=== PATIENT | male | born 1960 | race Caucasian/White ===

== ENCOUNTER → 2023-09-24 14:56 | Outpatient (REF) | payer MEDICARE, SELFPAY | LOC: HWRAD 14:56 | PROVIDERS: ATTENDING PHYSICIAN Internal Medicine Endocrinology, Diabetes & Metabolism; FAMILY PHYSICIAN Nurse Practitioner Family | DX: E04.2 Nontoxic multinodular goiter (principal) | CPT/HCPCS: 76536 ==

== ENCOUNTER → 2023-10-28 06:40 | Day surgery (SDC) | payer MEDICARE, SELFPAY | LOC: GI 06:40 | PROVIDERS: ATTENDING PHYSICIAN Internal Medicine; FAMILY PHYSICIAN Nurse Practitioner Family | DX: Z12.11 Encounter for screening for malignant neoplasm of colon (principal); Z83.719 Family history of colon polyps, unspecified; K64.8 Other hemorrhoids | CPT/HCPCS: G0105 ==

== ENCOUNTER → 2024-12-18 07:16 | Outpatient (REF) | payer MEDICARE, SELFPAY | LOC: HWRAD 07:16 | PROVIDERS: ATTENDING PHYSICIAN Internal Medicine Endocrinology, Diabetes & Metabolism; FAMILY PHYSICIAN Nurse Practitioner Family | DX: E04.2 Nontoxic multinodular goiter (principal) | CPT/HCPCS: 76536 ==

== ENCOUNTER → 2025-06-12 07:07 | Outpatient (REF) | payer MEDICARE, SELFPAY | LOC: RCS 07:07 | PROVIDERS: ATTENDING PHYSICIAN Nurse Practitioner Family | DX: R01.1 Cardiac murmur, unspecified (principal) | CPT/HCPCS: 93306 ==

== ENCOUNTER 2025-06-17 05:58 | Day surgery (SDC) | payer MEDICARE, SELFPAY ==
--- NOTE | 2025-05-31 13:14 | CM ---
Addendum entered by Karo Rose RN 06/01/25 14:46:
Demographics: confirmed
Living situation:
Support Person Post Operatively:
History of
VN: yes, not currently on service
SNF: No
Outpatient : Encouraged patient to call for outpatient appointment
Has patient purchased required equipment: yes
PCP: Deyanira Delcid
Pharmacy: [facility]
Post Operative Discharge Plan: Outpatient PT.
Original Note:
CM reviewed medical records. CM left message for orthopedic [facility].
CM will await call back from patient.
[2025-06-04 14:09] VITALS: BMI 39.1
[2025-06-04 14:37] LABS: Hematocrit 45.3 % (39.0-52.0); Hemoglobin 15.0 g/dL (13.0-18.0); Mean Corp Hgb Conc. 33.1 g/dL (33.0-37.0); Mean Corpuscular Volume 91.9 fL (80.0-94.0); Platelet Count 183 10^3/uL (130-400); Red Cell Dist. Width 12.7 % (11.5-14.5)
[2025-06-04 15:14] LABS: ALT (SGPT) 28 U/L (0-50); AST (SGOT) 34 U/L (17-59); Albumin 4.7 g/dl (3.5-5.0); Alkaline Phosphatase 54 U/L (38-126); Blood Urea Nitrogen 15 mg/dl (9-20); Calcium 9.5 mg/dl (8.4-10.2); Carbon Dioxide 28 mmol/L (22-30); Chloride 107 mmol/L (98-107); Estimated Creatinine Clearance 115 ml/min; Glucose 85 mg/dl (70-99); Potassium 4.4 mmol/L (3.5-5.1); Sodium 142 mmol/L (135-145); Total Protein 7.3 g/dl (6.3-8.2); eGFR > 60.00
[2025-06-05 08:54] LABS: Glycohemoglobin (HgbA1c) 5.6 % (4.0-5.6)
[2025-06-07 16:33] VITALS: BMI 39.1
[2025-06-17] VITALS (13 sets, daily range): BP systolic 104–135; BP diastolic 72–86; PULSE 67; O2SAT 97; BMI 39.1
[2025-06-17] MEDS: CELEBREX 200 MG PO (07:38)
[2025-06-17] MEDS: TYLENOL 650 MG PO ×4 (07:38→20:52)
[2025-06-17] MEDS: NORMOSOL-R/PLASMALYTE-A 1000 IV ×2 (07:49→13:03)
[2025-06-17] MEDS: ULTRAM 50 MG PO (11:19)
--- NOTE | 2025-06-17 12:04 | W.PN.UPDATE ---
Update Note
Progress Note Update
R knee OA s/p R TKA w/ Dr Mazariegos 06/17/2025
- s/p R FRANCA, 2018, by Dr Cornejo and L FRANCA, 2023, by Dr Jorgensen
- EARLY DISCHARGE
DVT prophylaxis - ASA, b/l venous foot pumps
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
- IV Ancef during admission
- Will continue prophylactic Cephalexin upon d/c
- Will advise probiotic w/ abx therapy
HTN - diet controlled - monitor BP
Moderately dilated aorta - to f/u w/ cardio outpatient per PCP recs
HLD
Sinus bradycardia, asymptomatic
Colon polyps
Hemorrhoids
Remote migraines
Thyroid nodules, stable on serial imaging
Brannon-Schlatter disease
Seborrheic dermatitis
Allergic rhinitis
Obesity, BMI 39.1
[2025-06-17] MEDS: ULTRAM 25 MG PO ×3 (13:03→20:56)
--- NOTE | 2025-06-17 14:25 | W.PN.UPDATE ---
Update Note
Progress Note Update
Patient seen and examined. VSS. Pulm: nonlabored. CV: regular. RLE: NVI distally. Able to fully extend. Calf soft. Postop xray as expected. ASA for DVT prophylaxis. Plan for discharge home tomorrow with outpatient PT on Saturday.
[2025-06-17] MEDS: ANCEF 5 IV ×2 (14:34→23:37)
[2025-06-17] MEDS: ASPIRIN 325 MG PO (17:03)
[2025-06-17] MEDS: NEURONTIN 300 MG PO (20:45)
[2025-06-17] MEDS: COLACE 100 MG PO (20:46)
[2025-06-17] MEDS: SENOKOT 17.2 MG PO (20:46)
[2025-06-17] MEDS: DECADRON 4 MG PO (20:47)
[2025-06-17] MEDS: FLORASTOR 250 MG PO (20:47)
[2025-06-17] MEDS: PEPCID 20 MG PO (20:48)
[2025-06-17] MEDS: FLOMAX 0.4 MG PO (20:48)
[2025-06-17] MEDS: BACTROBAN 2% OINTMENT 1 APPLIC NASAL (20:50)
[2025-06-17] MEDS: CRESTOR 5 MG PO (20:50)
[2025-06-17] MEDS: TYLENOL PO ×2 (23:37→23:42)
[2025-06-18 03:00] VITALS: BP 118/65
[2025-06-18 04:40] VITALS: BMI 38.9
[2025-06-18] MEDS: TYLENOL 650 MG PO ×2 (05:05→08:16)
[2025-06-18] MEDS: ULTRAM 50 MG PO (05:05)
--- NOTE | 2025-06-18 06:42 | W.PN.ORTHO ---
Today's Communication / Plan
-
Plan for discharge home after PT
Assessment
.
Distal Motor Intact: Yes
Dressing:
Clean, dry and intact.
Assessment:
Doing well s/p R TKR
Plan
.
Surgery / Date: R TKR 06/17/25 DB
DVT Prophylaxis: Aspirin
Activity:
Out of bed.
PT/OT
Discharge Plan: Home w/ Outpatient PT
Subjective
.
.:
Patient resting comfortably. Was OOB and in the pierce yesterday
Vital Signs and Labs
.
Vital Signs and Labs:
Lab Results
06/04/25 13:15
06/04/25 13:15
Temp Pulse Resp BP Pulse Ox
98.1 F 76 18 118/65 96
06/18/25 03:00 06/18/25 03:00 06/18/25 03:00 06/18/25 03:00 06/18/25 03:00
Non-invasive Hgb result: 12.6
Physical Exam
-
Pulm: nonlabored
CV: regular
RLE: Dressing CDI. calf soft. Able to SLR and fully extend
[2025-06-18 08:12] VITALS: BP 124/72
[2025-06-18] MEDS: ULTRAM 25 MG PO (08:15)
[2025-06-18] MEDS: BACTROBAN 2% OINTMENT 1 APPLIC NASAL (08:16)
[2025-06-18] MEDS: FLORASTOR 250 MG PO (08:16)
--- NOTE | 2025-06-18 08:16 | CM ---
Cm met with patient and in room. CM confirmed PT appointment for 06/21 at [facility]. IMM given.
PLAN: Home with outpatient PT.
[2025-06-18] MEDS: DECADRON 4 MG PO (08:17)
[2025-06-18] MEDS: ASPIRIN 325 MG PO (08:17)
[2025-06-18] MEDS: SENOKOT 17.2 MG PO (08:17)
[2025-06-18] MEDS: COLACE 100 MG PO (08:17)
[2025-06-18] MEDS: MOBIC 15 MG PO (08:17)
--- NOTE | 2025-06-18 09:02 | W.PN.ORTHO ---
Today's Communication / Plan
-
Await PT and OT recs.
D/c this morning if remaining clinically stable.
Assessment
.
Distal Motor Intact: Yes
Dressing:
Clean, dry and intact.
Assessment:
R knee OA s/p R TKA w/ Dr Mazariegos 06/17/2025
- s/p R FRANCA, 2018, by Dr Cornejo and L FRANCA, 2023, by Dr Jorgensen
- EARLY DISCHARGE
DVT prophylaxis - ASA, b/l venous foot pumps
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
- IV Ancef during admission
- Will continue prophylactic Cephalexin upon d/c
- Will advise probiotic w/ abx therapy
HTN - diet controlled - BPs overall stable
Moderately dilated aorta - to f/u w/ cardio outpatient per PCP recs
HLD
Sinus bradycardia, asymptomatic
Colon polyps
Hemorrhoids
Remote migraines
Thyroid nodules, stable on serial imaging
Excelsior-Schlatter disease
Seborrheic dermatitis
Allergic rhinitis
Obesity, BMI 39.1
Plan
.
Surgery / Date: R TKA w/ Dr Mazariegos 06/17/2025
DVT Prophylaxis: Aspirin
Activity:
Out of bed.
PT/OT
Discharge Plan: Home w/ Outpatient PT
Subjective
.
.:
Patient resting comfortably in his bed.
R knee pain overall well controlled w/ current pain meds.
Denies any new significant complaints.
Eager for early d/c today.
Vital Signs and Labs
.
Vital Signs and Labs:
Lab Results
06/04/25 13:15
06/04/25 13:15
Temp Pulse Resp BP Pulse Ox
98.5 F 93 16 124/72 94
06/18/25 08:12 06/18/25 08:12 06/18/25 08:12 06/18/25 08:12 06/18/25 08:12
Non-invasive Hgb result: 12.6
Physical Exam
-
HEENT: No pallor, cyanosis, or jaundice. Throat clear.
NECK: Supple. No JVD.
RESPIRATORY: Lungs clear to auscultation.
CVS: S1, S2 normal. RRR.�
ABDOMEN: Soft, non-tender. No distension.
EXTREMITIES: Expected post-surgical R knee edema. Strength equal, no calf pain with palpation/dorsiflexion. Calves soft
DIRECTOR OF CLINICAL EDUCATION: AOx3. No focal deficits. podiatric medicine doctor grossly intact
[2025-06-18 09:04] VITALS: BP 124/72; PULSE 93; O2SAT 93
--- NOTE | 2025-06-18 09:09 | W.DS.TRANS ---
DC Summary - [facility]
-
Discharge Instructions:
Sleep Apnea Risk High
Discharge Diagnosis/Procedures R knee OA s/p R TKA w/ Dr Mazariegos 06/17/2025
Diet Regular
Additional Diets Adequate hydration, minimize opioids, and wear
TEDs stockings to prevent low blood pressure/
dizziness.
Activity As tolerated,With Walker
Driving Restrictions Not until seen by your Dr
Bathing Restrictions OK to Shower
Other Services PT
Wound Care Dressing to be removed 1 week post-surgery.
Suresh to be removed at 2 week follow-up with
surgeon's office.
Instructions:
Stand-Alone Forms: Total Hip/Knee Replacement D/C
Changes to Home Medications: Yes
Discharge Medications:
DC Medications w/original date entered in [facility]
cetirizine 10 mg tablet 10 mg PO DAILY PRN ALLERGIES 12/26/18
multivitamin with folic acid 400 mcg tablet (Tab-A-Deidre) 1 tab PO DAILY Supplement 03/14/20
glucosamine 750 mg-chondroitin,msm 137.5 mg-D3 25 mcg-Boswellia tablet (Osteo-Joint Complex) 1 tab PO DAILY 06/01/25
Held on 06/18/25. Instructions: Resume on 06/24/25.
rosuvastatin 5 mg tablet 5 mg PO HS HLD 06/01/25
mupirocin 2 % topical ointment 1 applic intranasal BID #1 tube 06/04/25
dexamethasone 4 mg tablet 4 mg PO BID Anti-inflammatory #7 tabs 06/07/25
famotidine 20 mg tablet 20 mg PO HS #30 tabs 06/07/25
gabapentin 300 mg capsule 300 mg PO HS neuropathic pain/sleep #10 caps 06/07/25
meloxicam 15 mg tablet 15 mg PO DAILY #14 tabs 06/07/25
ondansetron HCl 4 mg tablet 4 mg PO Q6H PRN nausea and vomiting #30 tabs 06/07/25
tramadol 50 mg tablet 50 - 100 mg (1 - 2 x 50 mg) PO Q6H PRN moderate-severe pain #30 tabs 06/07/25
acetaminophen 500 mg tablet (Tylenol Extra Strength) 1,000 mg (2 x 500 mg) PO Q6H #60 tabs 06/18/25
aspirin 325 mg tablet 325 mg PO DAILY #30 tabs 06/18/25
cephalexin 500 mg tablet 500 mg PO HS R HIP INFECTION #1 tab 06/18/25
docusate sodium 100 mg capsule 100 mg PO BID #30 caps 06/18/25
magnesium hydroxide 400 mg/5 mL oral suspension (Milk of Magnesia) 30 ml PO HS PRN constipation #3,780 mL 06/18/25
sennosides 8.6 mg tablet (Leela-kevin) 17.2 mg (2 x 8.6 mg) PO BID #30 tabs 06/18/25
Home Medication Changes
dexamethasone 4 mg tablet 4 mg PO BID Anti-inflammatory #7 tabs 06/07/25
famotidine 20 mg tablet 20 mg PO HS #30 tabs 06/07/25
gabapentin 300 mg capsule 300 mg PO HS neuropathic pain/sleep #10 caps 06/07/25
meloxicam 15 mg tablet 15 mg PO DAILY #14 tabs 06/07/25
ondansetron HCl 4 mg tablet 4 mg PO Q6H PRN nausea and vomiting #30 tabs 06/07/25
tramadol 50 mg tablet 50 - 100 mg (1 - 2 x 50 mg) PO Q6H PRN moderate-severe pain #30 tabs 06/07/25
acetaminophen 500 mg tablet (Tylenol Extra Strength) 1,000 mg (2 x 500 mg) PO Q6H #60 tabs 06/18/25
aspirin 325 mg tablet 325 mg PO DAILY #30 tabs 06/18/25
docusate sodium 100 mg capsule 100 mg PO BID #30 caps 06/18/25
magnesium hydroxide 400 mg/5 mL oral suspension (Milk of Magnesia) 30 ml PO HS PRN constipation #3,780 mL 06/18/25
sennosides 8.6 mg tablet (Leela-kevin) 17.2 mg (2 x 8.6 mg) PO BID #30 tabs 06/18/25
Pending Results: No
[2025-06-18 09:29] VITALS: BP 124/72; PULSE 93; O2SAT 93
[2025-06-18 10:55] VITALS: BP 118/72
== END 2025-06-18 11:35 | disposition home or self-care (01) ==
LOC: SDS 05:58
PROVIDERS: ATTENDING PHYSICIAN Orthopaedic Surgery; FAMILY PHYSICIAN Nurse Practitioner Family
PROC: 0SRC0J9 Replacement of Right Knee Joint with Synthetic Substitute, Cemented, Open Approach (ICD-10-PCS; 2025-06-17)
DX: M17.11 Unilateral primary osteoarthritis, right knee (principal); I10 Essential (primary) hypertension; I77.819 Aortic ectasia, unspecified site; E78.5 Hyperlipidemia, unspecified; E04.2 Nontoxic multinodular goiter; Z68.39 Body mass index [BMI] 39.0-39.9, adult; E66.9 Obesity, unspecified; Z96.643 Presence of artificial hip joint, bilateral
CPT/HCPCS: 27447; 36415; 73560; 80053; 83036; 85027; 86850; 86900; 86901; 87070; 93005; 97116; 97162; 97167; 97530; C1713; C1776